=== PATIENT | male | born 1975 | race African-American/Black ===

== ENCOUNTER 2017-11-16 03:45 | Inpatient (IN) | payer BC ==
[~2017-11-16] VITALS: Ht 180.3 cm; Wt 132.6 kg
[~2017-11-16 03:45] MED LIST: IB PO
[2017-11-16 03:50] VITALS: Ht 180.3 cm; Wt 132.6 kg
[2017-11-16 07:36] LABS: PLATELET COUNT 192 x10^3mcL (130-400); RED CELL DISTRIBUTION WIDTH 12.5 % (11.5-14.5)
[2017-11-16 07:37] LABS: BASOPHIL % 0 % (0-2)
[2017-11-16 07:44] LABS: CALCIUM 7.9 mg/dL (8.5-10.1); CARBON DIOXIDE 24.4 mmol/L (21-32); CHLORIDE SERUM 101 mmol/L (98-107); CREATININE SERUM 1.3 mg/dL (0.7-1.3); GFR1 > 60 mL/min; GLUCOSE SERUM 167 mg/dL (74-106); POTASSIUM SERUM 3.7 mmol/L (3.5-5.1); SODIUM SERUM 137 mmol/L (136-145)
[2017-11-16 07:49] LABS: ALBUMIN 3.4 g/dL (3.4-5.0); ALKALINE PHOSPHATASE 73 U/L (46-116); ALT/SGPT 65 U/L (16-63); AST/SGOT 53 U/L (15-37); BILIRUBIN TOTAL 0.5 mg/dL (0.20-1.00); TOTAL PROTEIN, SERUM 7.4 g/dL (6.4-8.2)
[2017-11-16 07:50] LABS: MAGNESIUM 1.9 mg/dL (1.8-2.4); PHOSPHOROUS 2.6 mg/dL (2.5-4.9)
[2017-11-16 07:55] LABS: CHOLESTEROL/HDL RATIO 4.5
[2017-11-16 08:12] VITALS: BP 129/85
[2017-11-16 09:22] VITALS: BP 129/85
[2017-11-16 13:10] VITALS: BP 132/85
[2017-11-16 17:15] VITALS: BP 132/73
[2017-11-16 17:45] LABS: UA SPECIFIC GRAVITY 1.025 (1.005-1.035); microscopic required? YES; urine erythrocyte TRACE (NEGATIVE)
[2017-11-16 18:06] LABS: AMPHETAMINE QUAL UR NONE DETECTED (NEG <=1000)
[2017-11-16 20:58] VITALS: BP 129/78
[2017-11-17 06:23] VITALS: BP 114/73
[2017-11-17 06:32] LABS: CALCIUM 8.2 mg/dL (8.5-10.1); CARBON DIOXIDE 26.5 mmol/L (21-32); CHLORIDE SERUM 103 mmol/L (98-107); CREATININE SERUM 1.3 mg/dL (0.7-1.3); GFR1 > 60 mL/min; GLUCOSE SERUM 142 mg/dL (74-106); MAGNESIUM 2.2 mg/dL (1.8-2.4); PHOSPHOROUS 3.8 mg/dL (2.5-4.9); POTASSIUM SERUM 4.8 mmol/L (3.5-5.1); SODIUM SERUM 140 mmol/L (136-145)
[2017-11-17 07:04] LABS: BASOPHIL % 0.1 % (0-2); PLATELET COUNT 202 x10^3mcL (130-400); RED CELL DISTRIBUTION WIDTH 12.5 % (11.5-14.5)
[2017-11-17 10:12] VITALS: BP 119/72
[2017-11-17 13:04] VITALS: BP 131/80
[2017-11-17 16:38] VITALS: BP 118/71
[2017-11-17 21:02] VITALS: BP 129/69
[2017-11-18 05:11] VITALS: BP 109/64
[2017-11-18 06:35] LABS: CALCIUM 8.2 mg/dL (8.5-10.1); CARBON DIOXIDE 24.3 mmol/L (21-32); CHLORIDE SERUM 106 mmol/L (98-107); CREATININE SERUM 1.1 mg/dL (0.7-1.3); GFR1 > 60 mL/min; GLUCOSE SERUM 102 mg/dL (74-106); MAGNESIUM 2.1 mg/dL (1.8-2.4); PHOSPHOROUS 3.6 mg/dL (2.5-4.9); POTASSIUM SERUM 3.5 mmol/L (3.5-5.1); SODIUM SERUM 140 mmol/L (136-145)
[2017-11-18 07:08] LABS: BASOPHIL % 0.2 % (0-2); PLATELET COUNT 216 x10^3mcL (130-400); RED CELL DISTRIBUTION WIDTH 12.4 % (11.5-14.5)
[2017-11-18 10:32] VITALS: BP 123/66
[2017-11-18 14:39] VITALS: BP 121/81
[2017-11-18] MEDS ORDERED: LEVAQUIN750 MG PO (16:11)
[2017-11-18] MEDS ORDERED: GUAIFENESIN AN118 ML PO (16:16)
[2017-11-18 16:29] VITALS: BP 121/81
[2017-11-18] MEDS ORDERED: TESSALON PERLE100 MG PO (16:42)
[2017-11-18] MEDS ORDERED: SYMBICORT1 AE3 INH (16:42)
[2017-11-18 17:14] VITALS: BP 114/70
== END 2017-11-18 17:25 | disposition home or self-care (01) | DRG 193 ==
LOC: ED 03:45 → DU 07:11 → ED 07:55 → DU 08:12
PROVIDERS: Emergency Medicine; Family Medicine
DX: J18.1 Lobar pneumonia, unspecified organism (principal); N17.0 Acute kidney failure with tubular necrosis; D68.69 Other thrombophilia; Z68.41 Body mass index [BMI] 40.0-44.9, adult; E83.51 Hypocalcemia; R73.03 Prediabetes; E78.2 Mixed hyperlipidemia; E66.01 Morbid (severe) obesity due to excess calories; R74.0 Nonspecific elevation of levels of transaminase and lactic acid dehydrogenase [LDH]; R80.9 Proteinuria, unspecified; K76.0 Fatty (change of) liver, not elsewhere classified; R09.02 Hypoxemia
CPT/HCPCS: 36600; 83880; 87116; 87206; 87804; 94150; J1100; J1956; J2543; J3490; J7030; J7620; Q0092; Q9967